=== PATIENT | female | born 1955 | race Caucasian/White ===

== ENCOUNTER 2019-07-14 12:59 | Inpatient (IN) ==
[2019-07-14] MEDS ORDERED: DILTIAZEM 25 MG/5 ML VIAL IV ONE (13:12)
[2019-07-14] MEDS ORDERED: DILTIAZEM 125 MG in DEXTROSE 5% IN WATER 100 ML IV SCH (13:15)
--- NOTE | 2019-07-14 13:37 | Emergency Department Note ---
Arrhythmia/Palpitations HPI - General Chief Complaint: Arrhythmia/Palpitations Stated Complaint: palpations Time Seen by Provider: 07/14/19 13:04 Source: patient Mode of arrival: ambulatory Limitations: no limitations - History of Present Illness HPI Narrative: This is patient's third visit to the ER this week with atrial fibrillation RVR. [place] [address] away[address] She had a negative CT scan for PE but it was suggestive of heart failure. She does take medication for atrial for but her heart rate is now 130-140 here. She says she has been compliant with her medication. Denies chest pain. She has had a cough recently which seems to be going away. - Related Data Home Medications Medication Instructions Recorded Confirmed carvedilol 3.125 mg tablet 3.125 mg PO BID 06/18/19 07/14/19 lisinopril 5 mg tablet 5 mg PO Q OTHER DAY tab 06/18/19 07/14/19 warfarin 5 mg tablet 2.5 mg PO .QTUSA tab 06/18/19 07/14/19 warfarin 5 mg tablet 5 mg PO .QMWTHFSU tab 06/18/19 07/14/19 Previous Rx's Medication Instructions Recorded Furosemide [Lasix] 40 mg PO DAILY #40 tab 07/11/19 Potassium Chloride [K-Tab ER] 20 meq PO DAILY #20 tablet.er 07/11/19 Allergies Allergy/AdvReac Type Severity Reaction Status Date / Time digoxin Allergy Unknown Unknown Verified 07/09/19 14:24 Review of Systems All systems ED: reviewed and negative except as stated. Past Medical History - Past Medical History [facility] Narrative: Medical History (Last Reviewed 07/01/19 @ 15:16 by MARÍA See) Seborrheic keratosis (Chronic) Lightheadedness (Chronic) Atrial fibrillation (Chronic) Cardiomyopathy (Chronic) CHF (congestive heart failure) (Chronic) Cough (Chronic) SOB (shortness of breath) (Chronic) COPD (chronic obstructive pulmonary disease) (Chronic) Past Surgical History (Last Reviewed 07/01/19 @ 15:16 by MARÍA See) No pertinent past surgical history (Chronic) Family History (Last Reviewed 07/01/19 @ 15:16 by MARÍA See) Granddaughter No problems noted. Father Heart disease Mother Cancer Other No pertinent family history Medical history: Reports: atrial fibrillation, COPD - Social History smoking status: Never smoker Physical Exam Limitations: no limitations General appearance: alert Head: atraumatic Eye: Present: normal appearance ENT: Present: normal exam Neck: Present: normal inspection Chest: Present: normal inspection Respiratory: Present: normal lung sounds bilaterally Cardiovascular: Present: tachycardia, irregular rhythm, normal heart sounds Abdominal: Present: soft. Absent: distention, tenderness Extremities: Absent: pedal edema, pretibial edema Neurological: Present: alert Psychiatric: Present: normal affect Skin: Present: warm, dry Course Vital Signs Temperature 98 F 07/14/19 12:59 Pulse Rate 152 H 07/14/19 12:59 Respiratory Rate 22 07/14/19 12:59 Blood Pressure 108/90 07/14/19 12:59 Pulse Oximetry (%) 96 07/14/19 12:59 Temperature 98 F 07/14/19 12:59 Pulse Rate 96 H 07/14/19 16:16 Respiratory Rate 23 H 07/14/19 16:47 Blood Pressure 122/98 07/14/19 16:47 Pulse Oximetry (%) 96 07/14/19 16:47 Arrhythmia/Palpitations - [facility] Narrative Medical decision making narrative: This patient has atrial fib RVR and has evidence of congestive heart failure. We started Lasix to initiate a diuresis and she will be admitted to the hospital by the hospitalist service. I also gave her diltiazem which controlled her rate. - Lab Data Lab results reviewed: Yes I reviewed the patient's lab results. Result diagrams: 07/14/19 13:15 07/14/19 14:37 Lab Results 07/14/19 07/14/19 07/14/19 Range/Units 12:55 13:15 13:15 WBC 11.1 H (4.5-11.0) K/mcL RBC 4.70 (4.00-5.20) M/mcL Hgb 14.2 (12.0-15.0) g/dL Hct 44.0 (36.0-48.0) % MCV 93.6 (80.0-100.0) fL MCH 30.2 (26.0-34.0) pg MCHC 32.2 (31.0-36.0) g/dL RDW 14.8 H (11.5-14.5) % Plt Count 242 (140-440) K/mcL MPV 8.2 (7.4-10.4) fL Gran % 72.6 (38.0-78.0) % Lymph % (Auto) 16.0 (15.5-49.0) % [place] % (Auto) 10.3 (1.0-12.0) % Eos % (Auto) 0.6 (0.0-7.0) % Baso % (Auto) 0.5 (0.0-2.0) % Gran # 8.1 H (1.8-8.0) K/mcL Lymph # (Auto) 1.8 (1.5-4.8) K/mcL [place] # (Auto) 1.1 H (0.1-0.9) K/mcL Eos # (Auto) 0.1 (0.0-0.7) K/mcL Baso # (Auto) 0.1 (0.0-0.3) K/mcL Sodium Potassium Chloride Carbon Dioxide Anion Gap BUN Creatinine GFR Calculation Glucose Calcium Total Bilirubin AST ALT Alkaline Phosphatase Troponin T TNP NT-Pro-B Natriuret Pep Total Protein Albumin Globulin Albumin/Globulin Ratio Urine Color Straw Urine Appearance Clear Urine pH 5.0 (5.0-9.0) Ur Specific [place] 1.006 (1.000-1.035) Urine Protein Neg (NEG) mg/dL Urine Glucose (UA) Negative (NEG) mg/dL Urine Ketones Neg (NEG) mg/dL Urine Occult Blood Neg (<0.03) mg/dL Urine Nitrate Neg (NEG) Urine Bilirubin Neg (NEG) mg/dL Urine Urobilinogen Neg (NEG) mg/dL Ur Leukocyte Esterase Neg (NEG) /uL Urine RBC < 1 (0-1) /hpf Urine WBC 0 (0-4) /hpf Ur Squamous Epith Cells < 1 (0-4) /hpf Urine Bacteria 0 (0) /hpf Hyaline Casts 9 H (0-2) /lpf Urine Mucus Few (0) /hpf Ur Culture Indicated? No 07/14/19 07/14/19 07/14/19 Range/Units 13:34 14:37 14:37 WBC (4.5-11.0) K/mcL RBC (4.00-5.20) M/mcL Hgb (12.0-15.0) g/dL Hct (36.0-48.0) % MCV (80.0-100.0) fL MCH (26.0-34.0) pg MCHC (31.0-36.0) g/dL RDW (11.5-14.5) % Plt Count (140-440) K/mcL MPV (7.4-10.4) fL Gran % (38.0-78.0) % Lymph % (Auto) (15.5-49.0) % [place] % (Auto) (1.0-12.0) % Eos % (Auto) (0.0-7.0) % Baso % (Auto) (0.0-2.0) % Gran # (1.8-8.0) K/mcL Lymph # (Auto) (1.5-4.8) K/mcL [place] # (Auto) (0.1-0.9) K/mcL Eos # (Auto) (0.0-0.7) K/mcL Baso # (Auto) (0.0-0.3) K/mcL Sodium TNP 138 Potassium TNP 4.6 Chloride TNP 103 Carbon Dioxide TNP 22 Anion Gap TNP 13.0 BUN TNP 21 Creatinine TNP 0.9 GFR Calculation Not Reportable 67 Glucose TNP 104 Calcium TNP 8.5 L Total Bilirubin TNP 0.5 AST TNP 115 H ALT TNP 173 H Alkaline Phosphatase TNP 106 Troponin T < 0.01 NT-Pro-B Natriuret Pep TNP 824[address].0 H Total Protein TNP 6.0 Albumin TNP 3.3 Globulin TNP 2.7 Albumin/Globulin Ratio TNP 1.2 Urine Color Urine Appearance Urine pH (5.0-9.0) Ur Specific [place] (1.000-1.035) Urine Protein (NEG) mg/dL Urine Glucose (UA) (NEG) mg/dL Urine Ketones (NEG) mg/dL Urine Occult Blood (<0.03) mg/dL Urine Nitrate (NEG) Urine Bilirubin (NEG) mg/dL Urine Urobilinogen (NEG) mg/dL Ur Leukocyte Esterase (NEG) /uL Urine RBC (0-1) /hpf Urine WBC (0-4) /hpf Ur Squamous Epith Cells (0-4) /hpf Urine Bacteria (0) /hpf Hyaline Casts (0-2) /lpf Urine Mucus (0) /hpf Ur Culture Indicated? - Radiology Data Radiology results reviewed: Yes I reviewed the patient's radiology results. Disposition Pt seen by [facility]/PA only: No Clinical Impression: Atrial fibrillation with rapid ventricular response CHF (congestive heart failure) Qualifiers: Heart failure type: systolic Heart failure chronicity: chronic Qualified Code(s): I50.22 - Chronic systolic (congestive) heart failure Disposition: Xfer As Inpt ([facility] Condition: Good Referrals: Jamil Medina MD [Primary Care Provider] - Time of Disposition: 17:24
[2019-07-14 14:15] LABS: Appearance,Urine CLEAR; Bacteria,Urine 0 /hpf (0); Bilirubin,Urine NEG (NEG); Color,Urine STRAW; Culture Indicated,Urine NO; Glucose,Urine (UA) NEGATIVE (NEG); Ketones,Urine NEG (NEG); Leukocyte Esterase,Urine NEG /uL (NEG); Mucus,Urine FEW /hpf (0); Nitrate,Urine NEG (NEG); Protein,Urine NEG (NEG); Specific Gravity,Urine 1.006 (1.000-1.035); Urine Blood NEG mg/dL (<0.03); Urine Hyaline Cast 9 /lpf (0-2); Urine RBC < 1 /hpf (0-1); Urine Squamous Epithelial Cell < 1 /hpf (0-4); Urine WBC 0 /hpf (0-4); Urobilinogen,Urine NEG (NEG)
[2019-07-14 14:47] LABS: Basophils # (Auto) 0.1 K/mcL (0.0-0.3); Basophils % (Auto) 0.5 % (0.0-2.0); Eosinophils # (Auto) 0.1 K/mcL (0.0-0.7); Eosinophils % (Auto) 0.6 % (0.0-7.0); Granulocytes % (Auto) 72.6 % (38.0-78.0); Hemoglobin 14.2 g/dL (12.0-15.0); Lymphocytes # (Auto) 1.8 K/mcL (1.5-4.8); Mean Cell Volume 93.6 fL (80.0-100.0); Mean Corpuscular HGB Conc 32.2 g/dL (31.0-36.0); Mean Platelet Volume 8.2 fL (7.4-10.4); Monocytes # (Auto) 1.1 K/mcL (0.1-0.9); Monocytes % (Auto) 10.3 % (1.0-12.0); Platelet Count 242 K/mcL (140-440); Red Cell Distribution Width 14.8 % (11.5-14.5); WBC 11.1 K/mcL (4.5-11.0)
--- NOTE | 2019-07-14 14:55 | XRay Report ---
HISTORY: Short of breath FINDINGS: The heart is mild to moderately enlarged. There is congestive heart failure with mild edema and small bilateral pleural effusions. No lobar consolidation is present. Lung volumes are normal. No adenopathy is detected. Allowing for differences in technique there has been little change from the recent chest CT done on 07/09/19. IMPRESSION: Congestive heart failure IMPRESSION: Interpreted and Authenticated by: Jimi Friedman 07/14/19
[2019-07-14] MEDS ORDERED: FUROSEMIDE 20 MG/2 ML VIAL IV ONE ×2 (15:16→19:41)
[2019-07-14 15:57] LABS: ALT/SGPT 173 U/l (0-40); AST/SGOT 115 U/l (0-37); Albumin 3.3 gm/dL (3.2-5.2); Albumin/Globulin Ratio 1.2 (1.0-2.3); Alkaline Phosphatase 106 U/L (39-117); Bilirubin,Total 0.5 mg/dL (0.0-1.0); Blood Urea Nitrogen 21 mg/dl (8-23); Calcium 8.5 mg/dl (8.6-10.4); Carbon Dioxide 22 mmol/L (22-30); Chloride 103 mmol/L (96-108); Globulin 2.7 gm/dL (2.2-3.7); Glomerular Filtration Rate 67; Glucose 104 mg/dL (70-105)
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
[2019-07-14 18:06] LABS: INR 3.5 (0.9-1.1); Prothrombin Time 34.7 sec (11.9-14.5)
[2019-07-14] MEDS ORDERED: LACTULOSE 20 GM/30 ML ORAL.SOL PO PRN (18:21)
[2019-07-14] MEDS ORDERED: WARFARIN 5 MG TABLET PO SCH ×2 (18:21)
[2019-07-14] MEDS ORDERED: HYDROcodone/APAP 5/325MG TABLET PO PRN (18:21)
[2019-07-14] MEDS ORDERED: IPRATROPIUM/ALBUTEROL 3 ML AMPUL.NEB NEB PRN (18:21)
[2019-07-14] MEDS ORDERED: POTASSIUM CHLORIDE 20 MEQ TABLET PO PRN ×2 (18:21)
[2019-07-14] MEDS ORDERED: POTASSIUM CHLORIDE 40 MEQ in DEXTROSE 5% IN WATER 500 ML IV PRN (18:21)
[2019-07-14] MEDS ORDERED: MAGNESIUM SULFATE 2 GM/50 ML BAG IV PRN (18:21)
[2019-07-14] MEDS ORDERED: ACETAMINOPHEN 325 MG TABLET PO PRN (18:21)
[2019-07-14] MEDS: METOPROLOL SUCCINATE 25 MG TAB.XL.24H PO SCH (19:02)
[2019-07-14] MEDS: METOPROLOL TARTRATE 5 MG/5 ML VIAL IV PRN ×2 (19:40→23:13)
[2019-07-14] MEDS: DOCUSATE SODIUM 100 MG CAPSULE PO SCH (21:41)
[2019-07-14] MEDS: POLYETHYLENE GLYCOL 3350 17 GM PACKET PO PRN (21:43)
[2019-07-14] MEDS: 0.9 % SODIUM CHLORIDE 10 ML SYRINGE IV SCH (23:14)
[2019-07-15] MEDS: 0.9 % SODIUM CHLORIDE 250 ML IV SCH ×3 (02:48→20:01)
[2019-07-15] MEDS: ESMOLOL 2,500 MG in PREMIX 1 BAG IV SCH ×3 (02:48→18:07)
[2019-07-15] MEDS: METOPROLOL TARTRATE 5 MG/5 ML VIAL IV PRN ×4 (03:20→13:33)
[2019-07-15 05:28] LABS: Basophils # (Auto) 0 K/mcL (0.0-0.3); Basophils % (Auto) 0.6 % (0.0-2.0); Eosinophils # (Auto) 0.1 K/mcL (0.0-0.7); Eosinophils % (Auto) 1.3 % (0.0-7.0); Granulocytes % (Auto) 63.1 % (38.0-78.0); Hematocrit 37.2 % (36.0-48.0); Hemoglobin 12.1 g/dL (12.0-15.0); Lymphocytes # (Auto) 1.7 K/mcL (1.5-4.8); Lymphocytes % (Auto) 21.8 % (15.5-49.0); Mean Cell Volume 93.8 fL (80.0-100.0); Mean Corpuscular HGB Conc 32.4 g/dL (31.0-36.0); Monocytes % (Auto) 13.2 % (1.0-12.0); Platelet Count 273 K/mcL (140-440); RBC 3.96 M/mcL (4.00-5.20); Red Cell Distribution Width 14.8 % (11.5-14.5); WBC 7.6 K/mcL (4.5-11.0)
[2019-07-15 05:40] LABS: INR 3.1 (0.9-1.1); Prothrombin Time 31.3 sec (11.9-14.5)
[2019-07-15] MEDS: 0.9 % SODIUM CHLORIDE 10 ML SYRINGE IV SCH ×3 (05:43→20:10)
[2019-07-15 05:46] LABS: ALT/SGPT 159 U/l (0-40); AST/SGOT 107 U/l (0-37); Albumin 3.1 gm/dL (3.2-5.2); Albumin/Globulin Ratio 1.2 (1.0-2.3); Alkaline Phosphatase 101 U/L (39-117); Bilirubin,Direct < 0.2 mg/dL (0.0-0.3); Bilirubin,Total 0.4 mg/dL (0.0-1.0); Blood Urea Nitrogen 22 mg/dl (8-23); Calcium 8.5 mg/dl (8.6-10.4); Carbon Dioxide 21 mmol/L (22-30); Chloride 99 mmol/L (96-108); Globulin 2.6 gm/dL (2.2-3.7); Glomerular Filtration Rate 67; Glucose 112 mg/dL (70-105); Lactate Dehydrogenase 279 U/L (94-250); Phosphorous 3.9 mg/dL (2.7-4.5); Triglycerides 140 mg/dl (<150); Uric Acid 10.9 mg/dL (2.5-8.0)
[2019-07-15] MEDS: METOPROLOL SUCCINATE 25 MG TAB.XL.24H PO SCH (07:25)
[2019-07-15] MEDS ORDERED: MAGNESIUM SULFATE 2 GM/50 ML BAG IV ONE (07:35)
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
[2019-07-15] MEDS ORDERED: FUROSEMIDE 20 MG TABLET PO SCH (09:00)
[2019-07-15] MEDS ORDERED: AMIODARONE 150 MG in DEXTROSE 5% IN WATER 50 ML IV ONE (09:30)
[2019-07-15] MEDS: ONDANSETRON 4 MG/2 ML VIAL IV PRN ×3 (11:00→20:19)
[2019-07-15] MEDS ORDERED: 0.9 % SODIUM CHLORIDE 250 ML IV ONE (11:29)
[2019-07-15] MEDS: DOCUSATE SODIUM 100 MG CAPSULE PO SCH ×2 (13:11→20:09)
[2019-07-15] MEDS ORDERED: METOPROLOL TARTRATE 25 MG TABLET PO ONE (16:02)
[2019-07-15] MEDS ORDERED: DIGOXIN 500 MCG/2 ML AMPUL IV ONE ×2 (16:04→22:00)
--- NOTE | 2019-07-15 16:36 | XRay Report ---
HISTORY: Ileus, palpitations, congestive heart failure FINDINGS: The bowel gas pattern is normal without evidence of obstruction or ileus. The right lobe of the liver is elongated. There is no apparent mass or abnormal calcification within the abdomen. Patient still has congestive heart failure. This was seen on yesterday's chest x-ray. IMPRESSION: Hepatomegaly No evidence of ileus or bowel obstruction Interpreted and Authenticated by: Jimi Friedman 07/15/19
[2019-07-15] MEDS: SENNOSIDES 1 TABLET PO PRN (20:09)
[2019-07-15] MEDS: METOPROLOL TARTRATE 25 MG TABLET PO SCH (20:09)
[2019-07-15] MEDS: POLYETHYLENE GLYCOL 3350 17 GM PACKET PO PRN (20:09)
[2019-07-15] MEDS ORDERED: MELATONIN 3 MG TABLET PO PRN (22:50)
[2019-07-15] MEDS ORDERED: hydrOXYzine 10 MG TABLET PO ONE (22:52)
[2019-07-16 05:46] LABS: INR 2.6 (0.9-1.1); Prothrombin Time 27.7 sec (11.9-14.5)
[2019-07-16] MEDS: ESMOLOL 2,500 MG in PREMIX 1 BAG IV SCH ×2 (05:55→15:13)
[2019-07-16] MEDS: 0.9 % SODIUM CHLORIDE 10 ML SYRINGE IV SCH ×5 (05:58→20:57)
[2019-07-16 06:10] LABS: Basophils # (Auto) 0 K/mcL (0.0-0.3); Basophils % (Auto) 0.2 % (0.0-2.0); Eosinophils # (Auto) 0.1 K/mcL (0.0-0.7); Eosinophils % (Auto) 1.2 % (0.0-7.0); Granulocytes % (Auto) 65.9 % (38.0-78.0); Hematocrit 36.9 % (36.0-48.0); Hemoglobin 11.9 g/dL (12.0-15.0); Lymphocytes # (Auto) 1.8 K/mcL (1.5-4.8); Lymphocytes % (Auto) 19.6 % (15.5-49.0); Mean Cell Volume 93.8 fL (80.0-100.0); Mean Corpuscular HGB Conc 32.4 g/dL (31.0-36.0); Mean Platelet Volume 7.1 fL (7.4-10.4); Monocytes # (Auto) 1.2 K/mcL (0.1-0.9); Monocytes % (Auto) 13.1 % (1.0-12.0); Platelet Count 244 K/mcL (140-440); RBC 3.93 M/mcL (4.00-5.20); Red Cell Distribution Width 14.6 % (11.5-14.5); WBC 9.3 K/mcL (4.5-11.0)
[2019-07-16 06:12] LABS: Bilirubin,Direct < 0.2 mg/dL (0.0-0.3); Chloride 103 mmol/L (96-108)
[2019-07-16 06:14] LABS: ALT/SGPT 132 U/l (0-40); AST/SGOT 78 U/l (0-37); Albumin 2.8 gm/dL (3.2-5.2); Albumin/Globulin Ratio 1.1 (1.0-2.3); Alkaline Phosphatase 90 U/L (39-117); Bilirubin,Total 0.5 mg/dL (0.0-1.0); Blood Urea Nitrogen 17 mg/dl (8-23); Calcium 8.5 mg/dl (8.6-10.4); Carbon Dioxide 23 mmol/L (22-30); Globulin 2.5 gm/dL (2.2-3.7); Glomerular Filtration Rate 67; Glucose 80 mg/dL (70-105); Lactate Dehydrogenase 277 U/L (94-250); Phosphorous 3.2 mg/dL (2.7-4.5); Triglycerides 90 mg/dl (<150); Uric Acid 9.1 mg/dL (2.5-8.0)
[2019-07-16] MEDS ORDERED: ALBUMIN HUMAN 12.5 GM/50 ML BAG IV ONE ×2 (07:19→13:56)
[2019-07-16] MEDS ORDERED: FUROSEMIDE 40 MG/4 ML VIAL IV ONE (07:19)
[2019-07-16] MEDS: 0.9 % SODIUM CHLORIDE 250 ML IV SCH (07:22)
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
[2019-07-16] MEDS ORDERED: DIGOXIN 125 MCG TABLET PO ONE (08:00)
[2019-07-16] MEDS: DOCUSATE SODIUM 100 MG CAPSULE PO SCH ×2 (08:39→20:57)
[2019-07-16] MEDS: METOPROLOL TARTRATE 25 MG TABLET PO SCH ×2 (08:39→20:57)
[2019-07-16] MEDS ORDERED: FUROSEMIDE 20 MG TABLET PO SCH (09:00)
--- NOTE | 2019-07-16 12:40 | XRay Report ---
HISTORY: Palpitations, pleural effusion, follow up congestive heart failure FINDINGS: The heart is mild to moderately enlarged. There is congestive heart failure with pulmonary edema. Patient has small bilateral subpulmonic pleural effusions. There has been little change from the prior exam done on 07/14/19. IMPRESSION: Persistent congestive heart failure small bilateral pleural effusions Interpreted and Authenticated by: Jimi Friedman 07/16/19
[2019-07-16] MEDS ORDERED: FUROSEMIDE 20 MG/2 ML VIAL IV ONE (13:56)
[2019-07-16] MEDS ORDERED: WARFARIN 5 MG TABLET PO ONE (14:00)
--- NOTE | 2019-07-16 15:45 | Ultrasound Report ---
History: Pleural effusions and hypoxia FINDINGS: Patient has small bilateral pleural effusions, right larger than left. Allowing for differences in technique these have not changed significantly since the recent chest CT done on 07/09/19. IMPRESSION: Persistent bilateral pleural effusions Interpreted and Authenticated by: Jimi Friedman 07/16/19
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
[2019-07-16] MEDS ORDERED: MELATONIN 3 MG TABLET PO SCH (21:00)
[2019-07-17] MEDS: 0.9 % SODIUM CHLORIDE 10 ML SYRINGE IV SCH ×2 (06:13→12:08)
[2019-07-17 06:33] LABS: INR 2.2 (0.9-1.1); Prothrombin Time 23.9 sec (11.9-14.5)
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
[2019-07-17] MEDS: METOPROLOL TARTRATE 25 MG TABLET PO SCH (08:28)
[2019-07-17] MEDS: POLYETHYLENE GLYCOL 3350 17 GM PACKET PO PRN (08:28)
[2019-07-17] MEDS: DOCUSATE SODIUM 100 MG CAPSULE PO SCH (08:28)
[2019-07-17] MEDS: SENNOSIDES 1 TABLET PO PRN (08:31)
[2019-07-17] MEDS ORDERED: FUROSEMIDE 40 MG TABLET PO ONE (11:15)
[2019-07-17] MEDS ORDERED: WARFARIN 5 MG TABLET PO ONE (14:00)
[2019-07-20 06:55] LABS: Mitogen - NIL 7.55 IU/mL; NIL 0.02 IU/mL; Quant TB Gold + 4T Incubated NEGATIVE (NEGATIVE); TB1-NIL <0.00 IU/mL; TB2-NIL <0.00 IU/mL
== END 2019-07-17 15:45 | disposition home or self-care (01) | DRG 308 ==
LOC: ED 12:59 → ICU 18:18
PROVIDERS: ADMIT Internal Medicine; ATTEND Internal Medicine